=== PATIENT | female | born 1960 | race Caucasian/White ===

== ENCOUNTER → 2021-01-17 | Outpatient (CLI) | payer BC ==
[~2021-01-17] MED LIST: CARAFATE1 G1 PO; FIBER GUMMIES2 GM PO; HEARTBURN RELIE20 MG PO; HYDROCHLOROTH12.5 M2 PO; LEVOTHYROXINE75 MCG PO; LIPITOR20 MG PO
[2021-01-17 08:46] LABS: CREATININE 0.71 mg/dL (0.55-1.02)
== END | disposition home or self-care (01) ==
LOC: LAB 00:22 → CT 00:22
PROVIDERS: Radiology Diagnostic Radiology; ATTEND Surgery
DX: Z01.818 Encounter for other preprocedural examination (principal); K59.00 Constipation, unspecified; K57.30 Diverticulosis of large intestine without perforation or abscess without bleeding; K21.9 Gastro-esophageal reflux disease without esophagitis; Z90.710 Acquired absence of both cervix and uterus

== ENCOUNTER → 2021-01-17 | Outpatient (CLI) | payer BC | END | disposition home or self-care (01) | LOC: COVID19 08:02 | PROVIDERS: ATTEND Surgery | DX: Z01.812 Encounter for preprocedural laboratory examination (principal); Z20.822 Contact with and (suspected) exposure to COVID-19 ==

== ENCOUNTER → 2021-01-20 | Day surgery (SDC) | payer BC ==
[~2021-01-20] VITALS: Ht 157.4 cm; Wt 70.3 kg
[2021-01-20 09:45] VITALS: BP 139/83
[2021-01-20 11:07] VITALS: BP 116/65
[2021-01-20 11:22] VITALS: BP 126/88
[2021-01-20 11:31] VITALS: BP 143/76
== END ==
LOC: SDC 01-17 09:30
PROVIDERS: ATTEND Surgery
DX: K59.00 Constipation, unspecified (principal); K29.50 Unspecified chronic gastritis without bleeding; K57.30 Diverticulosis of large intestine without perforation or abscess without bleeding; E03.9 Hypothyroidism, unspecified; K21.9 Gastro-esophageal reflux disease without esophagitis; I10 Essential (primary) hypertension; Z90.710 Acquired absence of both cervix and uterus; Z79.899 Other long term (current) drug therapy